=== PATIENT | female | born 1990 ===

== ENCOUNTER 2018-05-03 20:47 | Emergency (ER) | payer OTHER ==
--- NOTE | 2018-05-03 22:19 | UC ---
Lower Extremity/Ankle HPI - HPI Summary HPI Summary: 27-year-old female presents with pain to the left great and second toes of her left foot after she was was stepped on by a horse around 5:00 this afternoon. States she was able to walk and bear weight immediately after the injury as well as in the clinic. States pain is more pronounced in the second left toe. Reports irregular bruising is present. Denies numbness or tingling. - History of Current Complaint Chief Complaint: UCLowerExtremity Stated Complaint: FOOT INJURY Time Seen by Provider: 05/03/18 21:38 Hx Obtained From: Patient Hx Last Menstrual Period: [id number] Pain Intensity: 0 - Allergies/Home Medications Allergies/Adverse Reactions: Allergies Allergy/AdvReac Type Severity Reaction Status Date / Time No Known Allergies Allergy Verified 05/03/18 21:06 Home Medications: Home Medications metroNIDAZOLE [Metronidazole 0.75 % gel] 45 g TOPICAL DAILY PRN 05/03/18 [ History Confirmed 05/03/18] PMH/Surg Hx/FS Hx/Imm Hx Previously Healthy: Yes - Denies significant PMH - Surgical History Surgical History: None - Family History Known Family History: Positive: Non-Contributory - Social History Occupation: Student Lives: Dormitory/Roommates Alcohol Use: Rare Substance Use Type: None Smoking Status (MU): Never Smoked Tobacco Review of Systems All Other Systems Reviewed And Are Negative: Yes Skin: Positive: Bruising Respiratory: Positive: Negative Cardiovascular: Positive: Negative Gastrointestinal: Positive: Negative Genitourinary: Positive: Negative Motor: Negative: Weakness Neurovascular: Negative: Decreased Sensation Musculoskeletal: Positive: Other: - See HPI Neurological: Positive: Negative Is Patient Immunocompromised?: No Physical Exam - Summary Physical Exam Summary: GENERAL APPEARANCE: Well developed, well nourished, alert and cooperative, and appears to be in no acute distress. CARDIAC: Normal S1 and S2. No S3, S4 or murmurs. Rhythm is regular. There is no peripheral edema, cyanosis or pallor. Extremities are warm and well perfused. Capillary refill is less than 2 seconds. Peripheral pulses intact. LUNGS: Clear to auscultation without rales, rhonchi, wheezing or diminished breath sounds. ABDOMEN: Positive bowel sounds. Soft, nondistended, nontender. No guarding or rebound. No masses or hepatosplenomegally. MUSKULOSKELETAL: Normal muscular development. EXTREMITIES: Significant ecchymosis of the left great and second toes. Tenderness over the base of the second toe without gross deformity. Mild limping gait. Circulation and sensation intact distally. SKIN: Skin normal color, texture and turgor. Triage Information Reviewed: Yes Vital Signs: Initial Vital Signs Temp 98.7 F 05/03/18 21:00 Pulse 74 05/03/18 21:00 Resp 18 05/03/18 21:00 BP 121/52 05/03/18 21:00 Pulse Ox 100 05/03/18 21:00 Vital Signs Reviewed: Yes Diagnostics - Radiology No standard instances Radiology Interpretation Completed By: ED Physician - Possible non-displaced fracture of the distal phalanx of the 2nd left toe, Radiologist Summary of Radiographic Findings: Order Information: FOOT LEFT 3+ VWS. Accession Number: [id number]. CPT: 48692. HISTORY: crush injury great toe and 2nd toe . COMPARISONS: None relevant available at the time of dictation. VIEWS: 3, Frontal, lateral, and oblique views of the left foot. FINDINGS: BONE DENSITY: Normal. BONES: There is a nondisplaced fracture through the base of the distal phalanx of the. second digit. JOINTS: There is no arthropathy. ALIGNMENT: There is no dislocation. SOFT TISSUES: Unremarkable. OTHER FINDINGS : None. IMPRESSION: NONDISPLACED FRACTURE OF THE BASE OF THE DISTAL PHALANX OF THE SECOND DIGIT. Lower Extremity Course/Dx - Course Course Of Treatment: 27-year-old female presents with pain to the left great and second toes of her left foot after she was was stepped on by a horse around 5:00 this afternoon. States she was able to walk and bear weight immediately after the injury as well as in the clinic. States pain is more pronounced in the second left toe. Reports irregular bruising is present. Denies numbness or tingling. Afebrile. Vital signs stable. Exam reveals a young adult female in no acute distress with significant bruising to the great toe and second toe of her left foot with tenderness at the base of the second toe with no gross deformity. Circulation sensation intact distally. X-ray shows a nondisplaced fracture at the base of the proximal phalanx of the second left toe. Patient was placed in a postop shoe and recommended conservative treatment with [id number] analgesics, and RICE. She was given a referral to orthopedic surgery for follow-up as needed. Anticipatory guidance and warning symptoms were reviewed with the patient. Verbalizes understanding and agrees with plan of care. - Differential Dx/Diagnosis Differential Diagnosis/HQI/PQRI: Contusion, Dislocation, Fracture (Closed) Provider Diagnosis: Nondisplaced fracture of distal phalanx of toe of left foot, Contusion of foot including toes Discharge - Sign-Out/Discharge Documenting (check all that apply): Patient Departure All imaging exams completed and their final reports reviewed: Yes - Discharge Plan Condition: Stable Disposition: HOME Patient Education Materials: Toe Fracture (ED) Referrals: No Primary Care Phys,NOPCP [Primary Care Provider] - Demarcus Perdomo MD [Medical Doctor] - 5 Days (Follow up in 5-7 days if no improvement in symptoms. Call for appointment.) Additional Instructions: Your x-ray of the foot showed a possible non-displaced fracture of the 2nd toe. The x-ray will be reviewed by the radiologist tomorrow and we will notify you if there is any change in your plan of care. Wear the post-op shoe provided to you for support and comfort. Rest the foot as much as possible. you may continue to walk and bear weight as tolerated. Apply ice for 15-20 minutes at least 4 times a day for next few days to help with pain and swelling. Keep your foot elevated while sitting to help reduce swelling. Use acetaminophen (Tylenol) or ibuprofen (Advil, Motrin) according to directions as needed for pain. Follow up with orthopedic surgery in 5-7 days if no improvement in symptoms. Call for appointment. Seek immediate medical attention in the emergency room if you have severe pain not managed with pain medication, develop numbness or tingling, are unable to walk or bear weight, or any worsening of symptoms. - Billing Disposition and Condition Condition: STABLE Disposition: Home
== END 2018-05-03 22:30 | disposition home or self-care (01) ==
LOC: UCEAST 20:47
DX: S92.535A Nondisplaced fracture of distal phalanx of left lesser toe(s), initial encounter for closed fracture (principal); S90.112A Contusion of left great toe without damage to nail, initial encounter; S90.122A Contusion of left lesser toe(s) without damage to nail, initial encounter; M79.675 Pain in left toe(s); W55.12XA Struck by horse, initial encounter; Y92.9 Unspecified place or not applicable
CPT/HCPCS: 99202; G0463